=== PATIENT | female | born 2000 | race Caucasian/White ===

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

== ENCOUNTER 2018-05-23 17:07 | Emergency (ER) | payer OTHER ==
[2018-05-23] MEDS: DIPHTH/TET/ACEL PERTUSS (ADULT) 0.5 ML VIAL IM* (18:37)
[2018-05-23] MEDS ORDERED: LIDOCAINE 1%/EPI (MDV) 50 ML INJ INJ (20:30)
[2018-05-23] MEDS: BACITRACIN 0.9 GM OINT TOP (20:30)
[2018-05-23] MEDS: LIDOCAINE 1%/EPI (1:100,000) (MDV) 20 ML INJ (20:35)
== END 2018-05-23 22:40 | disposition home or self-care (01) ==
LOC: FTE 22:40
DX: S91.121A Laceration with foreign body of right great toe without damage to nail, initial encounter (principal); W27.3XXA Contact with needle (sewing), initial encounter; Y92.9 Unspecified place or not applicable
CPT/HCPCS: 12001; 73630; 81025; 90471; 90715; 99283-25